=== PATIENT | male | born 1965 | race Caucasian/White ===

== ENCOUNTER 2019-05-24 11:44 | Inpatient (IN) | payer MEDICAID ==
[~2019-05-24] VITALS: Ht 167.6 cm; Wt 93.4 kg
[2019-05-24 11:48] VITALS: Ht 167.6 cm; Wt 93.4 kg
[2019-05-24 12:27] LABS: BASOPHIL % 1.1 % (0-2); PLATELET COUNT 278 x10^3mcL (130-400); RED CELL DISTRIBUTION WIDTH 13.1 % (11.5-14.5)
[2019-05-24 13:09] LABS: CALCIUM 8.8 mg/dL (8.5-10.1); CARBON DIOXIDE 27.5 mmol/L (21-32); CHLORIDE SERUM 100 mmol/L (98-107); CREATININE SERUM 1.3 mg/dL (0.7-1.3); GFR1 > 60 mL/min; GLUCOSE SERUM 130 mg/dL (74-106); POTASSIUM SERUM 3.9 mmol/L (3.5-5.1); SODIUM SERUM 137 mmol/L (136-145)
[2019-05-24 13:13] LABS: ALBUMIN 3.5 g/dL (3.4-5.0); ALKALINE PHOSPHATASE 80 U/L (46-116); ALT/SGPT 36 U/L (16-63); AST/SGOT 17 U/L (15-37); BILIRUBIN TOTAL 0.39 mg/dL (0.20-1.00); LIPASE 101 IU/L (73-393)
[2019-05-24 13:15] LABS: TOTAL PROTEIN, SERUM 8.4 g/dL (6.4-8.2)
[2019-05-24 18:56] LABS: microscopic required? NO
[2019-05-24 19:27] VITALS: BP 126/78
[2019-05-24 19:31] LABS: UA SPECIFIC GRAVITY 1.025 (1.005-1.035); urine erythrocyte NEGATIVE (NEGATIVE)
[2019-05-24 19:43] LABS: AMPHETAMINE QUAL UR NONE DETECTED (See below)
[2019-05-24 20:59] VITALS: BP 131/84
[2019-05-25 05:03] VITALS: BP 123/73
[2019-05-25 06:20] LABS: BASOPHIL % 0.1 % (0-2); PLATELET COUNT 259 x10^3mcL (130-400); RED CELL DISTRIBUTION WIDTH 12.8 % (11.5-14.5)
[2019-05-25 06:37] LABS: CALCIUM 8.6 mg/dL (8.5-10.1); CARBON DIOXIDE 25.7 mmol/L (21-32); CHLORIDE SERUM 103 mmol/L (98-107); CREATININE SERUM 1.2 mg/dL (0.7-1.3); GFR1 > 60 mL/min; GLUCOSE SERUM 119 mg/dL (74-106); MAGNESIUM 2.2 mg/dL (1.8-2.4); PHOSPHOROUS 4.8 mg/dL (2.5-4.9); POTASSIUM SERUM 4.5 mmol/L (3.5-5.1); SODIUM SERUM 136 mmol/L (136-145)
[2019-05-25 09:31] VITALS: BP 115/70
[2019-05-25] MEDS ORDERED: MOT800 PO (11:44)
[2019-05-25 11:59] VITALS: BP 115/70
== END 2019-05-25 15:28 | disposition home or self-care (01) | DRG 234 ==
LOC: ED 11:44 → MU 15:49 → DU 15:49 → MU 18:34 → DU 05-25 07:12
PROVIDERS: Student in an Organized Health Care Education/Training Program; Surgery; ADMIT Internal Medicine
PROC: 0DTJ4ZZ Resection of Appendix, Percutaneous Endoscopic Approach (ICD-10-PCS; principal; 2019-05-24 16:30)
DX: K35.80 Unspecified acute appendicitis (principal); K40.20 Bilateral inguinal hernia, without obstruction or gangrene, not specified as recurrent
CPT/HCPCS: G0378; J0330; J0696; J1885; J2250; J2405; J2543; J2704; J2710; J3010; J3490; J7030; J7060; J7120; Q0092; Q9967

== ENCOUNTER 2019-06-07 14:15 | Emergency (ER) | payer MEDICAID ==
[~2019-06-07] VITALS: Ht 170.2 cm; Wt 92.1 kg
[~2019-06-07 14:15] MED LIST: MOT800 PO
[2019-06-07 14:26] VITALS: Ht 170.2 cm; Wt 92.1 kg
[2019-06-07 17:15] LABS: BASOPHIL % 1.5 % (0-2); PLATELET COUNT 375 x10^3mcL (130-400); RED CELL DISTRIBUTION WIDTH 12.4 % (11.5-14.5)
[2019-06-07 17:22] LABS: CALCIUM 9.2 mg/dL (8.5-10.1); CARBON DIOXIDE 30.2 mmol/L (21-32); CHLORIDE SERUM 104 mmol/L (98-107); CREATININE SERUM 1.2 mg/dL (0.7-1.3); GFR1 > 60 mL/min; GLUCOSE SERUM 95 mg/dL (74-106); POTASSIUM SERUM 4.5 mmol/L (3.5-5.1); SODIUM SERUM 140 mmol/L (136-145)
[2019-06-07 17:27] LABS: ALBUMIN 3.5 g/dL (3.4-5.0); ALKALINE PHOSPHATASE 82 U/L (46-116); ALT/SGPT 28 U/L (16-63); AST/SGOT 12 U/L (15-37)
[2019-06-07 17:28] LABS: TOTAL PROTEIN, SERUM 8.4 g/dL (6.4-8.2)
[2019-06-07 18:58] VITALS: BP 137/81
== END 2019-06-07 18:58 | disposition home or self-care (01) ==
LOC: ED 14:15
PROVIDERS: Emergency Medicine
DX: K57.91 Diverticulosis of intestine, part unspecified, without perforation or abscess with bleeding (principal); Z90.89 Acquired absence of other organs
CPT/HCPCS: 36415